=== PATIENT | male | born 1970 ===

== ENCOUNTER 2018-08-17 08:20 | Outpatient (CLI) | payer OTHER ==
[~2018-08-17] VITALS: Ht 170.2 cm; Wt 97.5 kg
== END 2018-08-17 08:40 | disposition home or self-care (01) ==
LOC: OFIC 805 08:20
DX: J31.0 Chronic rhinitis (principal); H61.23 Impacted cerumen, bilateral; J35.1 Hypertrophy of tonsils

== ENCOUNTER 2023-03-19 05:30 | Day surgery (SDC) | payer OTHER ==
[2023-03-15 08:48] LABS: HEMATOCRIT 41.2 % (39.0-48.0); HEMOGLOBIN 14.1 g/dL (13-16.00); MEAN CORPUSCULAR HEMOGLOBIN 29.1 pg (27.00-32.0); MEAN CORPUSCULAR HGB CONC 34.2 g/dl (32.0-36.0); PLATELET COUNT 224 K/uL (150-450); RED BLOOD COUNT 4.85 M/uL (4.00-6.00); RED CELL DISTRIBUTION WIDTH 14.1 % (11.5-14.5)
[2023-03-15 08:51] LABS: PH,URINE 6.5 (5.0-8.0); URINE APPEARANCE Clear; URINE BILIRRUBIN Negative (NEGATIVE); URINE BLOOD Negative; URINE COLOR Yellow; URINE GLUCOSE Negative (NEGATIVE); URINE LEUKOCYTE Negative; URINE NITRATE Negative; URINE PROTEIN Negative (NEGATIVE)
[2023-03-15 08:52] LABS: URINE EPITHELIAL CELLS 2.1 uL (0.0-38.8); URINE RBC 3.7 uL (0.0-20.8); URINE WBC 1.9 uL (0.0-23.2)
[2023-03-15 09:11] LABS: URINE BACTERIA 2.5 uL (0.0-1933)
[2023-03-15 09:27] LABS: ALBUMIN 4.4 gm/dL (3.4-5.0); BILIRUBIN TOTAL 0.92 mg/dL (0.3-1.2); CALCIUM 9.4 mg/dL (8.5-10.1); GFR 78.47; GLOBULINA 3.6 G/DL (2.4-3.5); POTASSIUM 4.28 mEq/L (3.5-5.1)
[2023-03-15 09:33] LABS: INR 1.05; PARTIAL THROMBOPLASTIN TIME 26.5 SECONDS (22.0-34.0)
[~2023-03-19] VITALS: Ht 170.2 cm; Wt 86.2 kg
[~2023-03-19 05:30] MED LIST: CRESTOR10 MG PO; DIOVAN320 MG PO; METOPROLOL SUCC50 MG PO
== END 2023-03-19 14:30 | disposition home or self-care (01) ==
LOC: CIR.AMB 05:30
PROVIDERS: ATTEND Surgery
DX: K42.0 Umbilical hernia with obstruction, without gangrene (principal); Z20.822 Contact with and (suspected) exposure to COVID-19; E11.9 Type 2 diabetes mellitus without complications; E78.5 Hyperlipidemia, unspecified; I10 Essential (primary) hypertension
CPT/HCPCS: 49594; C1781